=== PATIENT | male | born 1985 | race Caucasian/White ===

== ENCOUNTER 2020-09-06 01:44 | Emergency (ER) | payer SELFPAY ==
[~2020-09-06] VITALS: Ht 182.9 cm; Wt 127.0 kg
[2020-09-06] MEDS ORDERED: ONDANSETRON PF 4 MG/2 ML VIAL. IVP ONE (02:15)
[2020-09-06] MEDS ORDERED: IV NORMAL SALINE 1,000ML 1,000 ML IV ONE (02:15)
[2020-09-06] MEDS ORDERED: MORPHINE SULFATE 4 MG/ML DISP.SYRIN. IV ONE (02:15)
--- NOTE | 2020-09-06 02:30 | PHYS DOC ---
Past History Past Medical History: Other Additional Past Medical Histor: heart attack Past Surgical History: No Surgical History Alcohol Use: None Drug Use: None Social History Narrative: past General Adult EDM: Chief Complaint: CHEST PAIN HPI: HPI: Patient is a 35-year-old male coming in for multiple complaints. Patient states that since yesterday morning he has been having left-sided sharp chest pain intermittently. Took 4 aspirins. Does not have chest pain now. Patient states that last December he had [place] but was seen in [place] and left [place] because his insurance did not cover there. Has not followed up and does not have a primary care provider. Patient states that he had an erection and then had intercourse with his just prior to the pain starting. Now complaining of right lower quadrant abdominal pain and right testicular pain, states his scrotum is little swollen. Also had some dark urination. Denies any dysuria. Patient has a history of kidney stones but states this does not feel the same. No vomiting or diarrhea, no past surgical history. Patient states that he used to smoke marijuana but quit 1 week ago. Review of Systems: Review of Systems: All other systems within normal limits except for as noted in the HPI Current Medications: Current Meds: Current Medications Medications (Trade) Dose Ordered Sig/Emy Start Time Stop Time Status Last Admin Dose Admin Iohexol (Omnipaque 300 Mg/ml) 75 ml 1X ONCE 09/06/20 02:15 09/06/20 02:16 UNV Lorazepam (Ativan Inj) 1 mg 1X ONCE 09/06/20 02:15 09/06/20 02:16 UNV Morphine Sulfate (Morphine 4mg Syringe) 4 mg 1X ONCE 09/06/20 02:15 09/06/20 02:16 UNV 09/06/20 02:18 4 MG Ondansetron HCl (Zofran) 4 mg 1X ONCE 09/06/20 02:15 09/06/20 02:16 UNV 09/06/20 02:23 4 MG Sodium Chloride 1,000 ml @ 1,000 mls/hr 1X ONCE 09/06/20 02:15 09/06/20 03:14 UNV 09/06/20 02:19 1,000 MLS/HR Allergies: Allergies: Allergies Coded Allergies Type Severity Reaction Last Updated Verified methylphenidate Allergy Unknown 09/06/20 Yes Physical Exam: PE: Constitutional: Well developed, well nourished, anxious and hyperventilating. [] HENT: Normocephalic, atraumatic, bilateral external ears normal, nose normal. [] Eyes: PERRLA, conjunctiva normal, no discharge. [] Neck: No rigidity, supple, no stridor. [] Cardiovascular: Regular rate and rhythm, brisk cap refill [] Lungs & Thorax: Tachypneic, reproducible chest wall pain. [] Abdomen: Soft, nondistended, right lower quadrant pain no guarding rebound. Slight edema around right testicle, no erythema, no palpable hernia, left testicle normal. Skin: Warm, dry, no erythema, no rash. [] Back: Unremarkable Extremities: No deformities, range of motion grossly intact, no lower extremity edema [] Neurologic: Alert and oriented X 3, no focal deficits noted. [] Psychologic: Anxious and hyperventilating [] Current Patient Data: Vital Signs: Vital Signs Date Time Temp Pulse Resp B/P (MAP) Pulse Ox O2 Delivery O2 Flow Rate FiO2 09/06/20 02:18 24 09/06/20 01:51 104 164/111 (128) 98 Room Air EKG: EKG: Sinus tachycardia, heart rate 102 bpm, left axis deviation, no ST elevation or depression, no ectopy. [] Radiology/Procedures: Radiology/Procedures: Study: CT abdomen/pelvis with intravenous contrast Indication: Right lower quadrant and right testicular pain. Comparison: CT abdomen/pelvis 12/28/2014 Technique: Helical CT imaging performed of the abdomen and pelvis after the intravenous administration of 75 cc Omnipaque 300 contrast. Sagittal and coronal reformats were obtained. One or more of the following individualized dose reduction techniques were utilized for this examination: 1. Automated exposure control 2. Adjustment of the mA and/or kV according to patient size 3. Use of iterative reconstruction technique. Findings: Bilateral gynecomastia. Right lower lobe granulomas. Unremarkable visualized mediastinal contents. Hepatic steatosis. Unremarkable gallbladder, biliary tree, pancreas and adrenal glands. Mild splenomegaly measuring just under 16 cm AP essentially unchanged from the comparison. Splenule at the hilum. Mild hydroureteronephrosis on the right in the setting of a 3.5 mm stone within the ureter 6 to 7 cm distal to the ureteropelvic junction. Additional punctate intrarenal stone at the lower pole on the right. There may be one to potentially two punctate intrarenal stones on the left. Unremarkable left collecting system. Within normal limits urinary bladder. Normal prostate. No CT abnormality of the scrotal contents. Unremarkable colon, appendix, small bowel and stomach. Nonaneurysmal aorta. No lymphadenopathy. No free fluid or pneumoperitoneum. No acute or aggressive osseous process. Redemonstrated grade 1 anterolisthesis of L4 on L5 and lumbar central canal narrowing greatest at L4-L5. Similar size of a disc osteophyte complex at L1-L2. Scattered facet arthrosis. The central canal appears narrowed from T7-T8 through T10-T11 but not similar to the 2015 comparison. Impression: 1. Mild hydroureteronephrosis on the right in the setting of a 3.5 mm stone within the ureter approximately 6 to 7 cm from the ureteropelvic junction. Additional punctate intrarenal stone at the lower pole on the right and suspected punctate intrarenal stones on the left as well. 2. Age accelerated spine degenerative changes superimposed on intrinsic narrowing of the canal. The degree of resultant canal narrowing appears relatively similar to the 2015 comparison. Nonemergent/outpatient MRI would better characterize only if there are symptoms referrable to the spine. 3. Hepatic steatosis and unchanged mild splenic enlargement. [] Study: US TESTICULAR Indication: Right testicular pain. Comparison: Same day CT abdomen/pelvis Technique/Findings: Grayscale and color Doppler sonographic evaluation of the scrotum and scrotal contents. The right testicle measures 5.5 x 3.2 x 2.8 cm and the left testicle 4.4 x 3.2 x 2.0 cm. Doppler flow is maintained to both testicles. No mass. Small testicular calcification on the right exhibiting benign features. Essentially symmetric size and echogenicity of the epididymal head. No hydrocele or scrotal fluid collection. Impression: No acute sonographic abnormality of the scrotal contents. Heart Score: HEART Score for Chest Pain: HEART Score for Chest Pain Response (Comments) Value History Slighlty/Non-Suspicious 0 ECG Normal 0 Age < 45 0 Risk Factors 1 or 2 Risk Factors 1 Troponin < Normal Limit 0 Total 1 Risk Factors: Risk Factors: DM, Current or recent (<one month) smoker, HTN, HLP, family history of CAD, obesity. Risk Scores: Score 0 - 3: 2.5% MACE over next 6 weeks - Discharge Home Score 4 - 6: 20.3% MACE over next 6 weeks - Admit for Clinical Observation Score 7 - 10: 72.7% MACE over next 6 weeks - Early Invasive Strategies Course & Med Decision Making: Course & Med Decision Making Pertinent Labs and Imaging studies reviewed. (See chart for details) [] Lisset Disclaimer: Lisset Disclaimer: This electronic medical record was generated, in whole or in part, using a voice recognition dictation system. Departure Departure: Impression: Primary Impression: Kidney stone Disposition: DC HOME SELF CARE/HOMELESS Condition: STABLE Referrals: PCP,NO (PCP) Patient Instructions: Diet for Kidney Stones Additional Instructions: You have a 3.5 mm kidney stone. Take medications as needed, increase fluid intake. May discontinue taking tamsulosin after stone passes. Scripts Tamsulosin Hcl (FLOMAX) 0.4 Mg Cap.er.24h 1 CAP PO DAILY for kidney stone for 10 Days, #10 CAP 11 Refills Prov: CRISTIANO CHEUNG MD 09/06/20 Ondansetron Hcl (ZOFRAN) 4 Mg Tablet 1 TAB PO PRN Q6HRS PRN for NAUSEA, #6 TAB Prov: CRISTIANO CHEUNG MD 09/06/20 Hydrocodone Bit/Acetaminophen (HYDROCODONE-APAP 5-325 ) 1 Each Tablet 1 TAB PO PRN Q6HRS PRN for PAIN for 5 Days, #15 TAB 0 Refills Caution: this medication can make you drowsy. Do not drive or operate heavy machinery when using this medication. Prov: CRISTIANO CHEUNG MD 09/06/20 Ibuprofen (IBUPROFEN) 800 Mg Tablet 1 TAB PO TID PRN for PAIN for 10 Days, #30 TAB Prov: CRISTIANO CHEUNG MD 09/06/20 CRISTIANO CHEUNG MD Sep 06, 2020 02:30
[2020-09-06] MEDS ORDERED: IOHEXOL 300 MG/ML 75 ML VIAL. IV ONE (02:45)
[2020-09-06] MEDS ORDERED: CONTRAST GIVEN. MC PRN (02:45)
[2020-09-06 02:59] LABS: BASO % 0 % (0-3); EOS # 0.3 x10^3/uL (0.0-0.7); EOS % 4 % (0-3); HEMATOCRIT 41.6 % (39.0-53.0); HEMOGLOBIN 14.5 g/dL (13.0-17.5); LYMPH % 46 % (24-48); MEAN CORPUSCULAR HEMOGLOBIN 30 pg (25-35); MEAN CORPUSCULAR HGB CONC 35 g/dL (31-37); MEAN CORPUSCULAR VOLUME 87 fL (79-100); MONO # 0.7 x10^3/uL (0.0-1.1); MONO % 8 % (0-9); NEUT # 3.6 x10^3uL (1.8-7.7); NEUT % 42 % (31-73); PLATELET COUNT 202 x10^3/uL (140-400); RED BLOOD COUNT 4.81 x10^6/uL (4.30-5.70); RED CELL DISTRIBUTION WIDTH 13.3 % (11.5-14.5); WHITE BLOOD COUNT 8.7 x10^3/uL (4.0-11.0)
[2020-09-06 03:01] LABS: CALCIUM 9.4 mg/dL (8.5-10.1); CREATININE 1.1 mg/dL (0.7-1.3); GFR 75.3
[2020-09-06 03:13] LABS: ALBUMIN 3.9 g/dL (3.4-5.0); TOTAL BILIRUBIN 0.4 mg/dL (0.2-1.0); TOTAL PROTEIN 7.7 g/dL (6.4-8.2)
--- NOTE | 2020-09-06 03:28 | RAD ---
Study: CT abdomen/pelvis with intravenous contrast Indication: Right lower quadrant and right testicular pain. Comparison: CT abdomen/pelvis 12/28/2014 Technique: Helical CT imaging performed of the abdomen and pelvis after the intravenous administratio n of 75 cc Omnipaque 300 contrast. Sagittal and coronal reformats were obtained. One or more of the following individualized dose reduction techniques were utilized for this examinat ion: 1. Automated exposure control 2. Adjustment of the mA and/or kV according to patient size 3. Use of iterative reconstruction technique. Findings: Bilateral gynecomastia. Right lower lobe granulomas. Unremarkable visualized mediastinal contents. Hepatic steatosis. Unremarkable gallbladder, biliary tree, pancreas and adrenal glands. Mild splenome shannon measuring just under 16 cm AP essentially unchanged from the comparison. Splenule at the hilum. Mild hydroureteronephrosis on the right in the setting of a 3.5 mm stone within the ureter 6 to 7 cm distal to the ureteropelvic junction. Additional punctate intrarenal stone at the lower pole on the r ight. There may be one to potentially two punctate intrarenal stones on the left. Unremarkable left c ollecting system. Within normal limits urinary bladder. Normal prostate. No CT abnormality of the scr otal contents. Unremarkable colon, appendix, small bowel and stomach. Nonaneurysmal aorta. No lymphadenopathy. No free fluid or pneumoperitoneum. No acute or aggressive os seous process. Redemonstrated grade 1 anterolisthesis of L4 on L5 and lumbar central canal narrowing greatest at L4-L5. Similar size of a disc osteophyte complex at L1-L2. Scattered facet arthrosis. The central canal appears narrowed from T7-T8 through T10-T11 but not similar to the 2014 comparison. Impression: 1. Mild hydroureteronephrosis on the right in the setting of a 3.5 mm stone within the ureter approx imately 6 to 7 cm from the ureteropelvic junction. Additional punctate intrarenal stone at the lower pole on the right and suspected punctate intrarenal stones on the left as well. 2. Age accelerated spine degenerative changes superimposed on intrinsic narrowing of the canal. The degree of resultant canal narrowing appears relatively similar to the 2014 comparison. Nonemergent/ou tpatient MRI would better characterize only if there are symptoms referrable to the spine. 3. Hepatic steatosis and unchanged mild splenic enlargement. Electronically signed by: GERHARD CONWAY MD (09/06/2020 3:26 AM) [facility]
[2020-09-06 03:34] LABS: BACTERIA,URINE 0 /HPF (0-FEW); BILIRUBIN,URINE NEG (NEG); CLARITY,URINE HAZY; COLOR,URINE YELLOW; GLUCOSE,URINE NEG (NEG); NITRITE,URINE NEG (NEG); RBC,URINE >40 /HPF (0-2); SQUAMOUS EPITHELIAL CELL,UR OCC /LPF; UROBILINOGEN,URINE 0.2 mg/dL (0.2 mg/dL); WBC,URINE OCC /HPF (0-4)
[2020-09-06] MEDS ORDERED: TAMSULOSIN 0.4 MG CAP.ER.24H. PO ONE (04:15)
--- NOTE | 2020-09-06 04:17 | RAD ---
Study: US TESTICULAR Indication: Right testicular pain. Comparison: Same day CT abdomen/pelvis Technique/Findings: Grayscale and color Doppler sonographic evaluation of the scrotum and scrotal contents. The right testicle measures 5.5 x 3.2 x 2.8 cm and the left testicle 4.4 x 3.2 x 2.0 cm. Doppler flow is maintained to both testicles. No mass. Small testicular calcification on the right exhibiting lucho ign features. Essentially symmetric size and echogenicity of the epididymal head. No hydrocele or scr otal fluid collection. Impression: No acute sonographic abnormality of the scrotal contents. Electronically signed by: GERHARD CONWAY MD (09/06/2020 4:15 AM) [facility]
[2020-09-06 04:18] VITALS: BP 133/77
[2020-09-06] MEDS ORDERED: IBUP800T19 PO (04:32)
[2020-09-06] MEDS ORDERED: HYDR-2155 PO (04:32)
[2020-09-06] MEDS ORDERED: ONDA4TAB7 PO (04:32)
[2020-09-06] MEDS ORDERED: TAMS0.4C97 PO (04:32)
[2020-09-06] MEDS ORDERED: HYDROcodone/APAP 5/325MG 1 TAB TABLET PO ONE (04:45)
--- NOTE | 2020-09-06 06:04 | EKG ---
[address] [address] Test Date: 2020-09-06 Test Time: 01:58:53 Pat Name: ELIZABETH GASTELUM Department: Room: Gender: M [employer] Attorney: LUCIANO : 1985 Requested By: CRISTIANO CHEUNG Order Number: [id number] Reading MD: Measurements Intervals [place] Rate: 102 P: 227 [place]: 94 QRS: -36 QRSD: 104 T: 14 QT: 342 QTc: 450 Interpretive Statements SINUS TACHYCARDIA ABNORMAL LEFT AXIS DEVIATION LEFT ANTERIOR FASCICULAR BLOCK ABNORMAL ECG RI6.02 No previous ECG available for comparison
== END 2020-09-06 04:45 | disposition home or self-care (01) ==
LOC: ER 01:44
DX: N13.2 Hydronephrosis with renal and ureteral calculous obstruction (principal); N50.811 Right testicular pain; Z87.442 Personal history of urinary calculi
CPT/HCPCS: 36415; 74177; 76870; 80053; 81001; 83605; 83690; 83880; 84484; 85025; 93005; 96361; 96374; 96375; 99285; J2270; J2405; J7030; Q9967